=== PATIENT | female | born 1960 | race Caucasian/White ===

== ENCOUNTER 2018-06-03 11:20 | Outpatient (CLI) | payer BC ==
--- NOTE | 2018-06-03 14:56 | MRI ---
MRI OF LUMBAR SPINE WITHOUT CONTRAST: Multiplanar, multisequence imaging of the lumbar spine obtained. INDICATION: Lumbar radiculopathy. FINDINGS: The lumbar vertebrae maintain normal height and alignment. Disk spaces are preserved. Mild degenera tive spurring from the lumbar vertebrae. At T12-L1, mild disk bulge. No central canal or foraminal stenosis. At L1-2, mild diffuse disk bulge. Facet arthrosis and mild hypertrophy. No significant central abdiel l or foraminal stenosis. At L2-3, minimal disk bugle. Mild facet arthrosis and hypertrophy. No central canal or foraminal st enosis. At L3-4, very mild disk bugle. Facet arthrosis and hypertrophy. No significant central canal or for aminal stenosis. At L4-5, minimal disk bulge. Mild facet arthrosis and hypertrophy. No significant central canal or foraminal stenosis. At L5-S1, mild diffuse broad-based disk bulge abuts the anterior thecal sac. This mildly encroaches into the foramina bilaterally and there is facet hypertrophy. No significant central canal stenosis. Mild foraminal narrowing. IMPRESSION: There is a mild diffuse disk bugle at L5-S1 and mild foraminal narrowing at L5-S1 as described. No d isk protrusion or herniation is seen at any of the levels. There is facet arthrosis and hypertrophy at all levels of the lumbar spine without significant central canal stenosis. POS: C
== END 2018-06-03 11:21 | disposition home or self-care (01) ==
LOC: MRI 11:20
PROVIDERS: ATTEND Specialist
DX: M47.26 Other spondylosis with radiculopathy, lumbar region (principal); M51.9 Unspecified thoracic, thoracolumbar and lumbosacral intervertebral disc disorder; M48.07 Spinal stenosis, lumbosacral region
CPT/HCPCS: 72148